=== PATIENT | male | born 1960 | race Caucasian/White ===

== ENCOUNTER 2019-10-08 17:29 | Emergency (ER) | payer BC ==
[2019-10-08] MEDS ORDERED: Sodium Chloride 0.9% 10 ML Syringe FLUSH PRN (17:37)
--- NOTE | 2019-10-08 18:10 | EDM.PDOC ---
ED HPI GENERAL MEDICAL PROBLEM - General Chief Complaint: Chest Pain Stated Complaint: SHORT OF BREATH CHEST TIGHTNESS Time Seen by Provider: 10/08/19 17:36 Source of Information: Reports: Patient, RN Notes Reviewed History Limitations: Reports: No Limitations - History of Present Illness INITIAL COMMENTS - FREE TEXT/NARRATIVE: Patient presents to the ED for the evaluation of chest tightness and being short of breath. The patient notes that he developed some chest tightness today while doing chores, but this went away with rest. Patient notes that really any sort of activity he does over the day winds him pretty quick. He notes that he has been having sharp pains to his upper back between his shoulder blades, more so on the right than the left. That worsens with breathing for the last week or so, he thought that this is due to a pinched nerve, as is a sharp shooting pain. He has been doing exercises and conservative measures at home to see if this would help, but the pain has worsened today. He denies any pain into his neck, he has not taken any ibuprofen or Tylenol for the pain. He further denies any nausea/vomiting/ diarrhea, or any sweating or diaphoresis. He used to doctor with [facility], but is set up for an appoint with Dr. Webb on 26 October. Patient states he does have a history of high blood pressure, and takes meds for this. Chest Pain Score (Numeric/FACES): 2 - Related Data Allergies Allergy/AdvReac Type Severity Reaction Status Date / Time No Known Allergies Allergy Verified 10/08/19 17:37 Home Meds: Home Meds Losartan [Cozaar] 50 mg PO DAILY 10/08/19 [History] Rosuvastatin [Crestor] 10 mg PO DAILY 10/08/19 [History] Past Medical History Cardiovascular History: Reports: High Cholesterol, Hypertension Social & Family History - Tobacco Use Smoking Status *Q: Never Smoker - Alcohol Use Alcohol Use History: Yes ED ROS GENERAL - Review of Systems Review Of Systems: See Below Constitutional: Denies: Fever, Chills Respiratory: Reports: Shortness of Breath (with exertion). Denies: Cough, Sputum Cardiovascular: Reports: Chest Pain (chest discomfort/tightness), Blood Pressure Problem (Hx/ HTN), Dyspnea on Exertion. Denies: Edema, Orthopnea GI/Abdominal: Denies: Abdominal Pain, Constipation, Diarrhea, Nausea, Vomiting Musculoskeletal: Reports: Back Pain (upper back btw shoulder blades, more to right shoulder) Neurological: Reports: Tingling (into arms at times). Denies: Numbness ED EXAM, GENERAL - Physical Exam Exam: See Below Exam Limited By: No Limitations General Appearance: Alert, WD/WN, No Apparent Distress Eye Exam: Bilateral Eye: EOMI, Normal Inspection, PERRL Nose: Normal Inspection Throat/Mouth: Normal Inspection, Normal Lips, Normal Teeth, Normal Gums, Normal Oropharynx, Normal Voice, No Airway Compromise Head: Atraumatic, Normocephalic Neck: Normal Inspection, Supple, Non-Tender, Full Range of Motion Respiratory/Chest: No Respiratory Distress, Lungs Clear, Normal Breath Sounds, No Accessory Muscle Use, Chest Non-Tender Cardiovascular: Normal Peripheral Pulses, Regular Rate, Rhythm, No Edema, No Murmur Peripheral Pulses: 3+: Radial (L), Radial (R) GI/Abdominal: Normal Bowel Sounds, Soft, Non-Tender, No Distention, No Mass Back Exam: Normal Inspection, Full Range of Motion Extremities: Normal Inspection, Normal Range of Motion, Normal Capillary Refill Neurological: Alert, Oriented, Normal Cognition, No Motor/Sensory Deficits Psychiatric: Normal Affect, Normal Mood Skin Exam: Warm, Dry, Intact, Normal Color, No Rash EKG INTERPRETATION EKG Date: 10/08/19 Time: 17:33 Rhythm: NSR Rate (Beats/Min): 83 [place]: Normal P-Wave: Present QRS: Normal ST-T: Normal QT: Normal Comparison: NA - No Prior EKG EKG Interpretation Comments: Q waves V1, Q waves lead III and aVF 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 Ferro. Course - Vital Signs Last Recorded V/S: Last Vital Signs Temp 97.8 F 10/08/19 17:35 Pulse 66 10/08/19 19:39 Resp 16 10/08/19 17:35 BP 178/96 H 10/08/19 19:39 Pulse Ox 95 10/08/19 17:35 - Orders/Labs/Meds Orders: Active Orders 24 hr Category Date Time Status EKG Documentation Completion [RC] STAT Care 10/08/19 17:37 Active Peripheral IV Care [RC] . DIRECTED Care 10/08/19 17:38 Active Chest 1V Frontal [CR] Stat Exams 10/08/19 17:37 Taken Peripheral IV Insertion Adult [OM.PC] Stat Oth 10/08/19 17:37 Ordered Labs: Laboratory Tests 10/08/19 10/08/19 10/08/19 Range/Units 17:50 17:50 17:50 WBC 5.97 (4.23-9.07) K/mm3 RBC 4.60 L (4.63-6.08) M/mm3 Hgb 14.8 (13.7-17.5) gm/dl Hct 42.9 (40.1-51.0) % MCV 93.3 H (79.0-92.2) fl MCH 32.2 (25.7-32.2) pg MCHC 34.5 (32.2-35.5) g/dl RDW Std Deviation 45.1 H (35.1-43.9) fL Plt Count 197 (163-337) K/mm3 MPV 10.5 (9.4-12.3) fl Neutrophils % (Manual) 58 (40-60) % Band Neutrophils % 0 (0-10) % Lymphocytes % (Manual) 33 (20-40) % Atypical Lymphs % 0 % Monocytes % (Manual) 7 (2-10) % Eosinophils % (Manual) 2 (0.8-7.0) % Basophils % (Manual) 0 L (0.2-1.2) Platelet Estimate Adequate Plt Morphology Comment Normal RBC Morph Comment Normal PT 10.3 (9.7-12.0) SECONDS INR 0.94 APTT 25 (22-31) SECONDS Sodium 141 (136-145) mEq/L Potassium 3.9 (3.5-5.1) mEq/L Chloride 104 (98-107) mEq/L Carbon Dioxide 23 (21-32) mEq/L Anion Gap 17.9 H (5-15) BUN 21 H (7-18) mg/dL Creatinine 0.8 (0.7-1.3) mg/dL Est Cr Clr Drug Dosing 111.82 mL/min Estimated GFR (MDRD) > 60 (>60) mL/min BUN/Creatinine Ratio 26.3 H (14-18) Glucose 98 (74-106) mg/dL Calcium 9.3 (8.5-10.1) mg/dL Magnesium 2.0 (1.8-2.4) mg/dl Total Bilirubin 0.3 (0.2-1.0) mg/dL AST 24 (15-37) U/L ALT 54 (16-63) U/L Alkaline Phosphatase 79 (46-116) U/L Troponin I 0.346 H* (0.00-0.056) ng/mL NT-Pro-B Natriuret Pep (0-125) pg/mL Total Protein 7.5 (6.4-8.2) g/dl Albumin 4.2 (3.4-5.0) g/dl Globulin 3.3 gm/dL Albumin/Globulin Ratio 1.3 (1-2) 10/08/19 Range/Units 17:50 WBC (4.23-9.07) K/mm3 RBC (4.63-6.08) M/mm3 Hgb (13.7-17.5) gm/dl Hct (40.1-51.0) % MCV (79.0-92.2) fl MCH (25.7-32.2) pg MCHC (32.2-35.5) g/dl RDW Std Deviation (35.1-43.9) fL Plt Count (163-337) K/mm3 MPV (9.4-12.3) fl Neutrophils % (Manual) (40-60) % Band Neutrophils % (0-10) % Lymphocytes % (Manual) (20-40) % Atypical Lymphs % % Monocytes % (Manual) (2-10) % Eosinophils % (Manual) (0.8-7.0) % Basophils % (Manual) (0.2-1.2) Platelet Estimate Plt Morphology Comment RBC Morph Comment PT (9.7-12.0) SECONDS INR APTT (22-31) SECONDS Sodium (136-145) mEq/L Potassium (3.5-5.1) mEq/L Chloride (98-107) mEq/L Carbon Dioxide (21-32) mEq/L Anion Gap (5-15) BUN (7-18) mg/dL Creatinine (0.7-1.3) mg/dL Est Cr Clr Drug Dosing mL/min Estimated GFR (MDRD) (>60) mL/min BUN/Creatinine Ratio (14-18) Glucose (74-106) mg/dL Calcium (8.5-10.1) mg/dL Magnesium (1.8-2.4) mg/dl Total Bilirubin (0.2-1.0) mg/dL AST (15-37) U/L ALT (16-63) U/L Alkaline Phosphatase (46-116) U/L Troponin I (0.00-0.056) ng/mL NT-Pro-B Natriuret Pep 423 H (0-125) pg/mL Total Protein (6.4-8.2) g/dl Albumin (3.4-5.0) g/dl Globulin gm/dL Albumin/Globulin Ratio (1-2) Meds: Medications Discontinued Medications Generic Name Dose Route Start Last Admin Trade Name Freq PRN Reason Stop Dose Admin Aspirin 324 mg 10/08/19 18:47 10/08/19 19:00 Aspirin PO 10/08/19 18:48 324 mg ONETIME ONE Administration Heparin Sodium (Porcine) 4,000 units 10/08/19 18:57 10/08/19 19:10 Heparin Sodium IVPUSH 10/08/19 18:58 4,000 units .BOLUS ONE Administration Nitroglycerin/Dextrose 25 mg in 250 mls @ 6 mls/hr 10/08/19 19:00 10/08/19 18 :59 Nitroglycerin 25 Mg/D5w 250 Ml IV 10 mcg/min TITRATE SONIA 6 mls/hr Administration Protocol 10 MCG/MIN Heparin Sodium/Dextrose 25,000 units in 500 mls @ 20 mls/hr 10/08/19 19:00 19:13 Heparin 25,000 Units In D5w 500 Ml IV 10/09/19 19:59 1,000 units/hr TITRATE ONE 20 mls/hr Administration Protocol 1,000 UNITS/HR Metoprolol Tartrate 5 mg 10/08/19 18:47 10/08/19 18:59 Lopressor IVPUSH 10/08/19 18:48 5 mg ONETIME ONE Administration Metoprolol Tartrate 5 mg 10/08/19 19:02 10/08/19 19:19 Lopressor IVPUSH 10/08/19 19:03 5 mg ONETIME ONE Administration Metoprolol Tartrate 5 mg 10/08/19 19:15 10/08/19 19:39 Lopressor IVPUSH 10/08/19 19:16 5 mg ONETIME ONE Administration Sodium Chloride 10 ml 10/08/19 17:37 10/08/19 17:55 Saline Flush FLUSH 10 ml ASDIRECTED PRN Administration Keep Vein Open - Re-Assessments/Exams Free Text/Narrative Re-Assessment/Exam: 10/08/19 18:12 Patient presents to the ED for evaluation of upper back pain and chest discomfort with associated shortness of breath. EKG, chest x-ray, labs to include CBC, CMP, troponin, BNP, coags will be done for evaluation. 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 This was read by Dr. Ferro. If patient's labs are nonfocal , I will recommend that he have a exercise and Cardiolite stress test done to further rule out any cardiac etiology that would be causing this pain. He is in agreement with this plan at this time. 10/08/19 18:33 Chest x-ray is done, and demonstrates mild cardiomegaly, and the patient is slightly rotated to the right, Dr. Ferro commented on a widened mediastinum due to this, but believes it is due to this rotation. 10/08/19 19:10 Patient's troponin did come back elevated 0.346. I did discuss the case with Dr. Ferro, patient will be given 3 doses of 5 mg of Toprol every 15 minutes, 325 mg aspirin, heparin bolus of 4000 with a drip of 1000/h, and nitro drip at 10 mics per minute. Case was discussed with Dr. Subramanian at [facility] in [place], she does accept for transfer of a non-STEMI at this time. Patient will be transported by [facility]. Departure - Departure Time of Disposition: 19:11 Disposition: DC/Tfer to Acute Hospital 02 Reason for Transfer *Q: Primary PCI Indicated Condition: Fair Clinical Impression: Non-STEMI (non-ST elevated myocardial infarction) Referrals: PCP,None [Primary Care Provider] - Forms: ED Department Discharge - My Orders Last 24 Hours: My Active Orders 10/08/19 17:37 EKG Documentation Completion [RC] STAT Chest 1V Frontal [CR] Stat Peripheral IV Insertion Adult [OM.PC] Stat 10/08/19 17:38 Peripheral IV Care [RC] . DIRECTED - Assessment/Plan Last 24 Hours: My Active Orders 10/08/19 17:37 EKG Documentation Completion [RC] STAT Chest 1V Frontal [CR] Stat Peripheral IV Insertion Adult [OM.PC] Stat 10/08/19 17:38 Peripheral IV Care [RC] . DIRECTED
[2019-10-08] MEDS ORDERED: Metoprolol Tartrate 5 MG/5 ML SDV IVPUSH ONE ×3 (18:47→19:15)
[2019-10-08] MEDS ORDERED: Aspirin 81 MG Tab.Chew PO ONE (18:47)
[2019-10-08] MEDS ORDERED: Heparin Sodium 5,000 Units/ML Vial IVPUSH ONE (18:57)
[2019-10-08] MEDS ORDERED: Nitroglycerin/D5W 25 MG/250 ML BOTTLE IV SCH (19:00)
[2019-10-08] MEDS ORDERED: Heparin Sodium/D5W 25,000 UNITS/500 ML BAG IV ONE (19:00)
--- NOTE | 2019-10-09 09:18 | CR ---
Chest: Portable view of the chest was obtained. Comparison: No prior chest x-ray. Heart size and mediastinum are normal. Minimal atelectasis is noted within the left base. Lungs otherwise are clear. Bony structures are grossly intact. Impression: 1. Mild left basilar atelectasis. 2. Nothing acute is otherwise seen on portable chest x-ray. Diagnostic code #2 This report was dictated in [place] Standard Time
== END 2019-10-08 20:00 ==
LOC: JD.ED 17:29
DX: I21.4 Non-ST elevation (NSTEMI) myocardial infarction (principal); I10 Essential (primary) hypertension; E78.00 Pure hypercholesterolemia, unspecified; Z79.899 Other long term (current) drug therapy
CPT/HCPCS: 36415; 71045; 80053; 83735; 83880; 84484; 85007; 85027; 85610; 85730; 93005; 96365; 96375; 99285; A9270; J1644; J3490; 93010; 99284